=== PATIENT | male | born 1995 | race Caucasian/White ===

== ENCOUNTER 2017-06-19 19:55 | Emergency (ER) | payer OTHER ==
[~2017-06-19] VITALS: Ht 175.3 cm; Wt 61.2 kg
[~2017-06-19 19:55] MED LIST: ACETAMINOPHEN PO; BACTRIM DS TABL1 TA1 PO; BENTYL20 M1 PO; IBUPROFEN; NO MEDICATIONS; VOLTAREN75 MG PO
[2017-06-19] MEDS ORDERED: NO MEDICATIONS (20:09)
== END 2017-06-19 20:57 | disposition home or self-care (01) ==
LOC: SED 19:55
DX: H44.002 Unspecified purulent endophthalmitis, left eye (principal); F17.210 Nicotine dependence, cigarettes, uncomplicated
CPT/HCPCS: 10060; 99283